=== PATIENT | male | born 1960 | race Caucasian/White ===

== ENCOUNTER → 2018-06-23 | Outpatient (CLI) | payer OTHER ==
--- NOTE | 2018-06-23 08:53 | PCVCIMAG ---
EXAM: BILATERAL RENAL ULTRASOUND AND BILATERAL RENAL DUPLEX INDICATION: Hypertension FINDINGS: Right kidney: Length measures 11.9 cm. No hydronephrosis or extensive renal scarring. Right renal duplex: Adequate technical quality. No sonographic evidence of renal artery stenosis. The aortic to renal artery ratio is 1.5. The renal vein is patent. Left kidney: Length measures 11.9 cm. No hydronephrosis or extensive renal scarring. Left renal duplex: Adequate technical quality. No sonographic evidence of renal artery stenosis. The aortic to renal artery ratio is 1.8. The renal vein is patent. Bladder: No obvious abnormalities. IMPRESSION: No significant renal artery stenosis. No hydronephrosis bilaterally. LOC:[id number]
--- NOTE | 2018-06-23 11:37 | PCVCIMAG ---
APPROVED REPORT Study performed: 06/23/2018 08:38:19 Exam: Stress Echocardiogram Indication: HTN Stress Nurse: Tata Hyde RN Status: routine Ht: 5 ft 4 in HR: 90 bpm BP: 174/110 mmHg Rhythm: NSR Medical History Medical History: Diabetic Insulin, HX CVA, HTN Procedure The patient underwent an Exercise Stress Test using the Yoan Protocol. Blood pressure, heart rate, and EKG were monitored. An Echocardiogram was performed by computer aided design technician in four stages in quad fashion. At peak stress, four selected images were obtained and placed side by side with resting images for comparison. Stress Test Details Stress Test: Exercise stress testing was performed using a Yoan protocol. HR Resting HR: 90 bpmMax Heart Rate (APMHR): 162 bpm Max HR Achieved: 142 bpmTarget HR (85% APMHR): 137 bpm % of APMHR: 87 Recovery HR: 107 bpm HR response to stress: Normal HR response to stress BP Resting BP: 174/110 mmHg Max BP: 240/120 mmHg Recovery BP: 214/104 mmHg BP response to stress: Abnormal hypertensive response to stress. ECG Resting ECG: Sinus Rhythm Stress ECG: Sinus Rhythm Recovery ECG: Sinus Rhythm Clinical Reason for Termination: Maximal effort, Dyspnea, Fatigue, HTN Exercise duration: 4 min 37 sec Highest Stage Achieved: Stage 2: 2.5 mph at 12% grade. Exercise capacity: 7.00 METs Overall Exercise Capacity for Age: Poor Stress ECG Conclusion Clinical: Non-ischemic ECG: Equivocal Pre-Stress Echo The resting Echocardiogram showed normal left ventricular contractility with an estimated Ejection Fraction of about >55%. Normal wall motion in all segments on baseline images. Post-Stress Echo The stress Echocardiogram showed normal left ventricular contractility with an estimated Ejection Fraction of about 60-65%. Normal augmentation of wall motion in all segments on post stress images. Clinical No clinical or ECG evidence for ischemia. Conclusion Clinical Response: Non-ischemic Exercise Capacity: Below Average Stress ECG Response: Equivocal Stress Echo Images: Non-ischemic The left ventricle is normal in size with increased wall thickness in both the rest and stress images. severe htn response Other Information Study Quality: Adequate <Conclusion> The left ventricle is normal in size with increased wall thickness in both the rest and stress images. severe htn response
== END | disposition home or self-care (01) ==
LOC: PCVCIMAG 07:49
PROVIDERS: ATTEND Family Medicine
DX: I12.9 Hypertensive chronic kidney disease with stage 1 through stage 4 chronic kidney disease, or unspecified chronic kidney disease (principal); E11.22 Type 2 diabetes mellitus with diabetic chronic kidney disease; N18.2 Chronic kidney disease, stage 2 (mild); Z79.4 Long term (current) use of insulin; Z86.73 Personal history of transient ischemic attack (TIA), and cerebral infarction without residual deficits
CPT/HCPCS: 76770; 93325; 93351; 93975